=== PATIENT | female | born 1950 ===

== ENCOUNTER 2017-08-05 01:01 | Emergency (ER) | payer MEDICARE ==
[2017-08-05 02:12] LABS: Basophils % (Auto) 0.9 % (0.0-1.8); Eosinophils % (Auto) 1.7 % (0.0-4.3); Hematocrit 32.2 % (30.3-42.9); Hemoglobin 10.8 gm/dl (10.1-14.3); Mean Corpuscular HGB Conc 34 % (30-34); Mean Corpuscular Hemoglobin 32 pg (28-32); Mean Corpuscular Volume 94 fl (79-97); Platelet Count 434 K/mm3 (140-440); Red Blood Count 3.41 M/mm3 (3.65-5.03); Red Cell Distribution Width 13.1 % (13.2-15.2)
[2017-08-05 02:32] LABS: Anion Gap 21 mmol/L; BUN/Creatinine Ratio 46.66; Blood Urea Nitrogen 28 mg/dL (7-17); Calcium 9.3 mg/dL (8.4-10.2); Carbon Dioxide 22 mmol/L (22-30); Chloride 101.1 mmol/L (98-107); Glucose 109 mg/dL (65-100); Potassium 4.1 mmol/L (3.6-5.0); Sodium 140 mmol/L (137-145)
[2017-08-05 06:34] VITALS: BP 119/53
[2017-08-05] MEDS ORDERED: ZOFRAN IV ONE (06:42)
[2017-08-05] MEDS ORDERED: MORPHINE IV ONE (06:42)
--- NOTE | 2017-08-05 06:46 | Emergency Department Report ---
ED Chest Pain HPI - General Chief Complaint: Chest Pain Stated Complaint: HURRIRMA/CP Time Seen by Provider: 08/05/17 06:32 Source: family Mode of arrival: Wheelchair Limitations: No Limitations - History of Present Illness Initial Comments: 67 years old female sent into his car family with a main complaint of left- sided chest pain tightness in nature that is started when patient received badly use about her daughter that she just . Patient stated that her pain radiated to her left shoulder. No shortness of breath no fever no cough no nausea no vomiting. Patient stated that she had a cardiac cath in [place] 2 month ago and he was told there was no blockage that need to have a stent. At this moment patient stated that her chest pain is completely gone and she is only hurting from her right shoulder when she had her surgery recently. She denied fever or. MD Complaint: chest pain -: Sudden Onset: other (emotional distress) Pain Location: left chest Severity: moderate Severity scale (0 -10): 6 Quality: tightness Consistency: now resolved - Related Data Previous Rx's Medication Instructions Recorded Last Taken Type ALPRAZolam [Xanax TAB] 0.5 mg PO TID PRN #9 tab 08/05/17 Unknown Rx Allergies Allergy/AdvReac Type Severity Reaction Status Date / Time No Known Allergies Allergy Unverified 08/05/17 01:33 Heart Score - HEART Score History: Moderately suspicious EKG: Normal Age: > 65 Risk factors: 1-2 risk factors Troponin: < normal limit HEART Score: 4 - Critical Actions Critical Actions: 4-6 pts:12-16.6% risk of adverse cardiac event. Should be admitted ED Review of Systems ROS: Stated complaint: HURRIRMA/CP Other details as noted in HPI Comment: All other systems reviewed and negative Constitutional: denies: chills, fever Respiratory: denies: cough, shortness of breath Cardiovascular: chest pain. denies: palpitations, dyspnea on exertion Gastrointestinal: denies: abdominal pain, nausea, vomiting, diarrhea, constipation Musculoskeletal: denies: back pain Neurological: denies: headache Psychiatric: denies: depression ED Past Medical Hx - Past Medical History Previous Medical History?: Yes Hx Hypertension: Yes Additional medical history: Cardiac history - Surgical History Past Surgical History?: Yes Additional Surgical History: right shoulder - Social History Smoking Status: Never Smoker Substance Use Type: None - Medications Home Medications: Home Medications Medication Instructions Recorded Confirmed Last Taken Type ALPRAZolam [Xanax TAB] 0.5 mg PO TID PRN #9 tab 08/05/17 Unknown Rx ED Physical Exam - General Limitations: No Limitations General appearance: alert, in no apparent distress - Head Head exam: Present: normocephalic - Eye Pupils: Present: normal accommodation - ENT ENT exam: Present: normal exam - Neck Neck exam: Present: normal inspection - Respiratory Respiratory exam: Present: normal lung sounds bilaterally. Absent: respiratory distress, wheezes, rales, rhonchi, chest wall tenderness - Cardiovascular Cardiovascular Exam: Present: regular rate, normal rhythm, normal heart sounds - GI/Abdominal GI/Abdominal exam: Present: soft. Absent: tenderness, guarding, rebound, rigid , normal bowel sounds, organomegaly, mass, bruit - Extremities Exam Extremities exam: Present: normal inspection - Back Exam Back exam: Present: normal inspection. Absent: CVA tenderness (R), CVA tenderness (L) - Neurological Exam Neurological exam: Present: alert, oriented X3, CN II-XII intact - Psychiatric Psychiatric exam: Present: depressed. Absent: homicidal ideation, suicidal ideation - Skin Skin exam: Present: warm, intact ED Course Vital Signs 08/05/17 08/05/17 08/05/17 01:27 04:04 04:08 Temperature 98.9 F 98.1 F Pulse Rate 63 Respiratory 11 L Rate Blood Pressure 105/54 O2 Sat by Pulse 97 Oximetry 08/05/17 08/05/17 08/05/17 04:14 04:15 04:21 Temperature 98.4 F Pulse Rate 66 67 Respiratory 17 18 16 Rate Blood Pressure 115/54 115/54 O2 Sat by Pulse 99 99 98 Oximetry 08/05/17 08/05/17 08/05/17 04:41 05:00 05:21 Temperature Pulse Rate 64 59 L 59 L Respiratory 14 13 14 Rate Blood Pressure 114/51 125/57 125/57 O2 Sat by Pulse 97 99 98 Oximetry 08/05/17 08/05/17 08/05/17 05:41 06:00 06:21 Temperature Pulse Rate 62 58 L 59 L Respiratory 16 12 11 L Rate Blood Pressure 117/52 119/53 119/53 O2 Sat by Pulse 97 99 97 Oximetry - Reevaluation(s) Reevaluation #1: 08/05/17 06:46 Patient stated that her chest pain was completely resolved. Given the recent negative cardiac cath in the presence of emotional distress that family reports which includes a dentist of her daughter I believe the patient will be able to discharged home and to follow-up with her school speech language pathologist. ED Medical Decision Making - Lab Data Result diagrams: 08/05/17 01:57 08/05/17 01:57 Critical care attestation.: If time is entered above; I have spent that time in minutes in the direct care of this critically ill patient, excluding procedure time. ED Disposition Clinical Impression: Chest pain Disposition: DC-01 TO HOME OR SELFCARE Is pt being admited?: No Condition: Stable Instructions: Chest Pain (ED) Referrals: PRIMARY CARE, [Primary Care Provider] - 3-5 Days
--- NOTE | 2017-08-05 09:29 | XRay Report ---
Chest 2 views: History: Chest pain. Findings: Normal cardiomediastinal silhouette. Trachea is midline. Mildly elevated right diaphragm compared to left. No consolidation or pleural effusion. Impression: No acute cardiopulmonary findings.
== END 2017-08-05 07:02 | disposition home or self-care (01) ==
LOC: ED 01:01
DX: R07.89 Other chest pain (principal); I10 Essential (primary) hypertension
CPT/HCPCS: 36415; 71020; 80048; 84484; 85025; 93005; 93010; 96374; 96375; 99284; J2270; J2405